=== PATIENT | male | born 1985 | race African-American/Black ===

== ENCOUNTER 2020-03-30 13:04 | Emergency (ER) | payer SELFPAY ==
[2020-03-30 14:52] LABS: Basophils % 0.9 % (0-1.3); Hematocrit 43.8 % (39.6-49.0); Lymphocytes % 36.2 % (15.3-44.8); MPV 7.9 fL (7.6-11.3); RBC Red Blood Cell Count 4.69 M/uL (4.33-5.43)
[2020-03-30 15:13] LABS: ALT/SGPT 55 U/L (12-78); AST/SGOT 27 U/L (15-37); Albumin 4.1 g/dL (3.4-5.0); Alkaline Phosphatase 63 U/L (45-117); BUN Blood Urea Nitrogen 10 mg/dL (7-18); Bicarbonate 27 mmol/L (21-32); Bilirubin Total 0.6 mg/dL (0.2-1.0); Glucose Level 82 mg/dL (74-106); Potassium 3.7 mmol/L (3.5-5.1); Protein, Total 8.4 g/dL (6.4-8.2); Sodium Level 139 mmol/L (136-145)
--- NOTE | 2020-03-30 15:27 | EDPHYS ---
Physician Documentation [facility] Name: Vick Collins Age: 34 yrs Sex: Male : 1985 Arrival Date: 03/30/2020 Time: 13:07 Bed 10 Private MD: ED Physician Cristobal Troy HPI: 03/30 15:06 This 34 yrs old Black Male presents to ER via Wheelchair with complaints of Cold jmm Exposure. 15:06 Onset: The symptoms/episode began/occurred last night. The patient has not experienced jmm similar symptoms in the past. This is a 34 year old male with a history of htn that presents to the ED with complaints of cold exposure. Patient states he attempted to walk to his cousins house last night at 6 but there was no one home. Patient has been exposed to the cold since. Denies pain. . Historical: - Allergies: 13:17 NKA; ll1 - PMHx: 13:17 Hypertension; ll1 - PSHx: 13:17 None; ll1 - Immunization history:: Flu vaccine is up to date. - Social history:: Smoking status: Patient reports the use of cigarette tobacco products, smokes one-half pack cigarettes per day. ROS: 15:06 Constitutional: Negative for fever, chills, and weight loss, Cardiovascular: Negative jmm for chest pain, palpitations, and edema, Respiratory: Negative for shortness of breath, cough, wheezing, and pleuritic chest pain. 15:06 All other systems are negative. Exam: 15:06 Constitutional: This is a well developed, well nourished patient who is awake, alert, jmm and in no acute distress. Head/Face: atraumatic. Eyes: EOMI, no conjunctival erythema appreciated ENT: Moist Mucus Membranes Neck: Trachea midline, Supple Chest/axilla: Normal chest wall appearance and motion. Cardiovascular: Regular rate and rhythm. No edema appreciated Respiratory: Normal respirations, no respiratory distress appreciated Abdomen/GI: Non distended, soft Back: Normal ROM Skin: General appearance color normal MS/ Extremity: Moves all extremities, no obvious deformities appreciated, no edema noted to the lower extremities Neuro: Awake and alert, normal gait Psych: Behavior is normal, Mood is normal, Patient is cooperative and pleasant Vital Signs: 13:17 BP 131 / 96; Pulse 83; Resp 17; Temp 94.3(O); Pulse Ox 97% on R/A; Pain 9/10; ll1 14:20 Temp 98.3(O); ss 15:01 BP 121 / 69; Pulse 70; Resp 15; Temp 98.8; Pulse Ox 100% ; jl7 MDM: 14:33 Patient medically screened. [facility] 15:24 Data reviewed: vital signs, nurses notes. Counseling: I had a detailed discussion with oleg the patient and/or guardian regarding: the historical points, exam findings, and any diagnostic results supporting the discharge/admit diagnosis, lab results, the need for outpatient follow up, to return to the emergency department if symptoms worsen or persist or if there are any questions or concerns that arise at home. ED course: Patient is alert and non toxic in appearance in the ED. No signs of resp distress. patient is advised to follow up with pcp. Patient is advised to return to the ED if symptoms worsen. patient understood and agrees with the plan of care. . 03/30 14:19 Order name: CBC with Diff; Complete Time: 15:00 [facility] 03/30 14:19 Order name: CMP; Complete Time: 15:17 [facility] 03/30 14:19 Order name: EKG - Nurse/Tech; Complete Time: 15:01 [facility] 03/30 14:19 Order name: Fibrinogen; Complete Time: 15:00 [facility] 03/30 14:19 Order name: Lactate; Complete Time: 15:09 [facility] 03/30 14:40 Order name: EKG; Complete Time: 14:41 [facility] 03/30 14:19 Order name: Saline Lock; Complete Time: 14:40 [facility] Administered Medications: No medications were administered Disposition: 17:36 Co-signature as Attending Physician, Cristobal Troy MD. ma2 Disposition: 03/30/20 15:26 Discharged to Home. Impression: Exposure to excessive natural cold. - Condition is Stable. - Discharge Instructions: Hypothermia Prevention, Hypothermia. - Medication Reconciliation Form, Thank You Letter, Antibiotic Education, Prescription Opioid Use form. - Follow up: Private Physician; When: 2 - 3 days; Reason: Recheck today's complaints, Continuance of care, Re-evaluation by your physician. Signatures: Dispatcher [employer] Eddy Alvarez PA PA jmm Leal, Jahala, RN RN jl7 Cristobal Troy MD MD ma2 Trav Abbott RN RN ll1 Corrections: (The following items were deleted from the chart) 15:44 15:26 03/30/2020 15:26 Discharged to Home. Impression: Exposure to excessive natural jl7 cold. Condition is Stable. Forms are Medication Reconciliation Form, Thank You Letter, Antibiotic Education, Prescription Opioid Use. Follow up: Private Physician; When: 2 - 3 days; Reason: Recheck today's complaints, Continuance of care, Re-evaluation by your physician. jmm
--- NOTE | 2020-03-30 15:27 | ER ---
Nurse's Notes [facility] Name: Vick Collins Age: 34 yrs Sex: Male : 1985 Arrival Date: 03/30/2020 Time: 13:07 Bed 10 Private MD: Diagnosis: Exposure to excessive natural cold Presentation: 03/30 13:17 Chief complaint: Patient states: Stuck outside in the cold since 6 PM yesterday. Just ll1 got a ride today. Coronavirus screen: Client denies travel out of the [place] in the last 14 days. At this time, the client does not indicate any symptoms associated with coronavirus-19. Ebola Screen: Patient denies travel to an Ebola-affected area in the 21 days before illness onset. Initial Sepsis Screen: Does the patient meet any 2 criteria? No. Patient's initial sepsis screen is negative. Does the patient have a suspected source of infection? No. Patient's initial sepsis screen is negative. Risk Assessment: Do you want to hurt yourself or someone else? Patient reports no desire to harm self or others. Onset of symptoms was March 29, 2020. 13:17 Method Of Arrival: Wheelchair ll1 13:17 Acuity: MAHOGANY 2 ll1 Historical: - Allergies: 13:17 NKA; ll1 - PMHx: 13:17 Hypertension; ll1 - PSHx: 13:17 None; ll1 - Immunization history:: Flu vaccine is up to date. - Social history:: Smoking status: Patient reports the use of cigarette tobacco products, smokes one-half pack cigarettes per day. Screenin:41 Abuse screen: Denies threats or abuse. Denies injuries from another. Nutritional jl7 screening: No deficits noted. Tuberculosis screening: No symptoms or risk factors identified. Fall Risk IV access (20 points). Total Puente Fall Scale indicates No Risk (0-24 pts). Assessment: 14:41 General: Appears in no apparent distress. uncomfortable, Behavior is cooperative, flat. jl7 Pain: Denies pain. Neuro: Level of Consciousness is awake, alert, obeys commands, Oriented to person, place, time, situation. Cardiovascular: Patient's skin is warm and dry. Respiratory: Airway is patent Respiratory effort is even, unlabored, Respiratory pattern is regular, symmetrical. Derm: Skin is pink, warm \T\ dry. 15:30 Reassessment: Patient appears in no apparent distress at this time. Patient and/or jl7 family updated on plan of care and expected duration. Pain level reassessed. Patient is alert, oriented x 3, equal unlabored respirations, skin warm/dry/pink. Vital Signs: 13:17 BP 131 / 96; Pulse 83; Resp 17; Temp 94.3(O); Pulse Ox 97% on R/A; Pain 9/10; ll1 14:20 Temp 98.3(O); ss 15:01 BP 121 / 69; Pulse 70; Resp 15; Temp 98.8; Pulse Ox 100% ; jl7 ED Course: 13:07 Patient arrived in ED. mr 13:17 Arm band placed on. ll1 13:19 Triage completed. 1 14:13 Trav Abbott, LIZETT is Primary Nurse. 1 14:14 Eddy Islas PA is PHCP. [facility] 14:14 Cristobal Troy MD is Attending Physician. [facility] 14:41 Patient has correct armband on for positive identification. Bed in low position. Call jl7 light in reach. Side rails up X 1. Pulse ox on. NIBP on. Warm blanket given. 14:41 Initial lab(s) drawn, by me, sent to lab. Inserted saline lock: 20 gauge in right jl7 antecubital area, using aseptic technique. Blood collected. 15:01 EKG done, by ED staff, reviewed by Eddy STAFFORD. [facility] 15:44 No provider procedures requiring assistance completed. IV discontinued, intact, jl bleeding controlled, No redness/swelling at site. Pressure dressing applied. Administered Medications: No medications were administered Outcome: 15:26 Discharge ordered by . [facility] 15:44 Discharged to home via wheelchair, with family. 7 15:44 Condition: good 15:44 Discharge instructions given to patient, Instructed on discharge instructions, follow up and referral plans. Demonstrated understanding of instructions, follow-up care. 15:44 Patient left the ED. [facility] Signatures: Eddy Islas PA PA [facility] Shawna CernaAna Maria, RN RN Soo Galicia RN RN [facility] Trav Abbott RN RN [facility]
[2020-03-30 16:02] VITALS: BP 121/69; TEMP 98.8; O2SAT 100
== END 2020-03-30 15:44 | disposition home or self-care (01) ==
LOC: ER 13:04
DX: Z04.89 Encounter for examination and observation for other specified reasons (principal); F17.210 Nicotine dependence, cigarettes, uncomplicated; X31.XXXA Exposure to excessive natural cold, initial encounter
CPT/HCPCS: 36415; 80053; 83605; 85025; 85384; 99284